=== PATIENT | female | born 1930 | race Caucasian/White ===

== ENCOUNTER 2019-03-21 07:01 | Inpatient (IN) | payer MEDICARE, BC ==
[~2019-03-21 07:01] MED LIST: Lactated Ringers 1,000 ML IV SCH; Lidocaine 1%/Sod Bicarbonate in NS 8.4% 1 ML Syringe IDERM PRN; Sodium Chloride 0.9% 10 ML Syringe FLUSH PRN
[2019-03-21] MEDS ORDERED: Sennosides 8.6 MG Tab PO PRN (07:09)
[2019-03-21] MEDS ORDERED: Iodine/Sodium Iodide 2% Tincture 30 ML Bottle ONE (07:09)
[2019-03-21] MEDS ORDERED: Bisacodyl 5 MG Tab PO PRN (07:09)
[2019-03-21] MEDS ORDERED: Ondansetron 4 MG/2 ML SDV IVPUSH PRN ×2 (07:09→11:19)
[2019-03-21] MEDS ORDERED: ceFAZolin 1 GM Vial ONE ×2 (07:09→09:47)
[2019-03-21] MEDS ORDERED: Naloxone 0.4 MG/ML SDV IVPUSH PRN (07:09)
[2019-03-21] MEDS ORDERED: Bupivacaine 0.25% 10 ML SDV ONE (07:09)
[2019-03-21] MEDS ORDERED: Vancomycin 1 GM SDV ONE (07:09)
[2019-03-21] MEDS ORDERED: Morphine 2 MG/ML Syringe IVPUSH PRN (07:09)
--- NOTE | 2019-03-21 07:22 | PCM.CONS ---
H&P History of Present Illness - General Date of Service: 03/21/19 Admit Problem/Dx: Admission Diagnosis/Problem Admission Diagnosis/Problem Osteoarthritis of hip Source of Information: Patient, Old Records, Provider, RN, RN Notes Reviewed History Limitations: Reports: No Limitations - History of Present Illness Initial Comments - Free Text/Narative: Xochitl Albright is an 88 yo female patient of Dr. Greene who is post-operative day 0 of left BABAK. Hospital medicine was consulted for post-operative medical care of the following listed medical conditions. At this time she is resting comfortably. Pain is controlled. She denies any chest pain, shortness of breath , palpitations, nausea, or vomiting. Post-operatively she did spontaneously convert into A-fib with a rate of 90-110. 10mg IVP Cardizem was given which decreased her rate to 70-80. This is likely 2/2 anesthesia and will be closely monitored. She carries a history of: HTN, Osteopenia, Unintentional weight loss , Hypothyroidism, HLD, Lung mass, Obesity, Rectal and uterine prolapse, PACs, HLD, Severe lumbar spine neuroforaminal stenosis, chronic diarrhea, Anxiety, hemorrhoids, chronic back pain. She is a former smoker. She is a full code. Her primary care provider is Dr. Slatre/Dr. Aguirre. - Related Data Allergies/Adverse Reactions: Allergies Allergy/AdvReac Type Severity Reaction Status Date / Time No Known Allergies Allergy Verified 03/20/19 13:11 Home Medications: Home Meds Acetaminophen [Tylenol] 650 mg PO Q4H PRN 03/20/19 [History] Celecoxib 200 mg PO DAILY PRN 03/20/19 [History] Cholecalciferol (Vitamin D3) [Vitamin D3] 5,000 unit PO DAILY 03/20/19 [History] Colestipol HCl 1 gm PO BEDTIME PRN 03/20/19 [History] Levothyroxine 112 mcg PO DAILY 03/20/19 [History] Simvastatin 20 mg PO DAILY 03/20/19 [History] Past Medical History HEENT History: Reports: Impaired Vision, Other (See Below) Other HEENT History: wears glasses Cardiovascular History: Reports: High Cholesterol, Hypertension, Other (See Below) Other Cardiovascular History: premature atrial complexes Respiratory History: Reports: Other (See Below) Other Respiratory History: lung mass Gastrointestinal History: Reports: Hemorrhoids, Other (See Below) Other Gastrointestinal History: colonoscopy, weight loss, diarrhea, perianal laceration of rectal mucosa, hemorrhoid Genitourinary History: Reports: None 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: , Prolapsed Uterus Musculoskeletal History: Reports: Osteoporosis Neurological History: Reports: Other (See Below) Other Neuro History: neural forminal stenosis of lumbar spine, back pain, degenerative arthropathy of spinal facet joint Psychiatric History: Reports: None Endocrine/Metabolic History: Reports: Hypothyroidism, Obesity/BMI 30+ Hematologic History: Reports: None Immunologic History: Reports: None Oncologic (Cancer) History: Reports: None Dermatologic History: Reports: None - Past Surgical History Head Surgeries/Procedures: Reports: None Cardiovascular Surgical History: Reports: None Respiratory Surgical History: Reports: None GI Surgical History: Reports: Colonoscopy Female Surgical History: Reports: Breast Biopsy, D&C Endocrine Surgical History: Reports: None Musculoskeletal Surgical History: Reports: Other (See Below) Other Musculoskeletal Surgeries/Procedures:: left ankle fracture with surgical repair Oncologic Surgical History: Reports: None Dermatological Surgical History: Reports: None Social & Family History - Tobacco Use Smoking Status *Q: Former Smoker Used Tobacco, but Quit: Yes Month/Year Tobacco Last Used: 1981 - Caffeine Use Caffeine Use: Reports: Coffee - Recreational Drug Use Recreational Drug Use: No H&P Review of Systems - Review of Systems: Review Of Systems: See Below General: Reports: No Symptoms. Denies: Fever, Chills HEENT: Reports: No Symptoms. Denies: Contact Lenses, Sore Throat Pulmonary: Reports: No Symptoms. Denies: Shortness of Breath, Wheezing, Cough, Sputum Cardiovascular: Reports: No Symptoms. Denies: Chest Pain, Palpitations, Dyspnea on Exertion Gastrointestinal: Reports: No Symptoms. Denies: Abdominal Pain, Constipation, Diarrhea, Nausea, Vomiting Genitourinary: Reports: No Symptoms. Denies: Pain Musculoskeletal: Reports: Leg Pain (left) Skin: Reports: No Symptoms. Denies: Cyanosis Psychiatric: Reports: No Symptoms. Denies: Confusion Neurological: Reports: No Symptoms, Difficulty Walking, Gait Disturbance. Denies: Pre-Existing Deficit Hematologic/Lymphatic: Reports: No Symptoms Immunologic: Reports: No Symptoms Exam - Exam Exam: See Below - Exam Quality Assessment: Supplemental Oxygen, DVT Prophylaxis General: Alert, Oriented, Cooperative. No: Mild Distress HEENT: Conjunctiva Clear, EACs Clear, Hearing Intact, Mucosa Moist & [place], Nares Patent, Posterior Pharynx Clear, PERRLA Neck: Supple, Trachea Midline Lungs: Clear to Auscultation, Normal Respiratory Effort Cardiovascular: Irregular Rhythm (new onset a-fib), Tachycardia (upper 90's-110s ) GI/Abdominal Exam: Normal Bowel Sounds, Soft, Non-Tender, No Distention, No Abnormal Bruit (Female) Exam: Deferred Rectal (Female) Exam: Deferred Back Exam: Normal Inspection, Full Range of Motion Extremities: No Pedal Edema, Normal Capillary Refill, Leg Pain, Limited Range of Motion, Other (Bandage in place on left leg. Bandage is dry and intact. Cooling pack in place. ) Peripheral Pulses: 2+: Radial (L), Radial (R), Dorsalis Pedis (L), Dorsalis Pedis (R) Skin: Warm, Dry, Intact Neurological: Cranial Nerves Intact (Grossly ) Neuro Extensive - Mental Status: Alert, Oriented x3, Normal Mood/Affect Consult PN Assessment/Plan POD#: 0 (1) S/P total hip arthroplasty SNOMED Code(s): 238233517532, 257047434861 Code(s): Z96.649 - PRESENCE OF UNSPECIFIED ARTIFICIAL HIP JOINT Priority: High Current Visit: Yes Qualifiers: Laterality: left Qualified Code(s): Z96.642 - Presence of left artificial hip joint (2) Osteoarthritis SNOMED Code(s): 251510899 Code(s): M19.90 - UNSPECIFIED OSTEOARTHRITIS, UNSPECIFIED SITE Priority: High Current Visit: Yes Qualifiers: Osteoarthritis location: hip Osteoarthritis type: primary Laterality: left Qualified Code(s): M16.12 - Unilateral primary osteoarthritis, left hip (3) HTN (hypertension) SNOMED Code(s): 28342110 Code(s): I10 - ESSENTIAL (PRIMARY) HYPERTENSION Priority: Low Current Visit: No Qualifiers: Hypertension type: unspecified Qualified Code(s): I10 - Essential (primary ) hypertension (4) Osteopenia SNOMED Code(s): 182033237 Code(s): M85.80 - OTH DISRD OF BONE DENSITY AND STRUCTURE, UNSPECIFIED SITE Priority: High Current Visit: Yes Qualifiers: Osteopenia location: unspecified Qualified Code(s): M85.80 - Other specified disorders of bone density and structure, unspecified site (5) Unintentional weight loss SNOMED Code(s): 335500802 Code(s): R63.4 - ABNORMAL WEIGHT LOSS Priority: Low Current Visit: No (6) Hypothyroidism SNOMED Code(s): 32805409 Code(s): E03.9 - HYPOTHYROIDISM, UNSPECIFIED Priority: Low Current Visit : No Qualifiers: Hypothyroidism type: unspecified Qualified Code(s): E03.9 - Hypothyroidism , unspecified (7) HLD (hyperlipidemia) SNOMED Code(s): 45786190 Code(s): E78.5 - HYPERLIPIDEMIA, UNSPECIFIED Priority: Low Current Visit : No (8) Lung mass SNOMED Code(s): 641058655 Code(s): R91.8 - OTHER NONSPECIFIC ABNORMAL FINDING OF LUNG FIELD Priority : Low Current Visit: No (9) Obesity SNOMED Code(s): 038583209, 885008844 Code(s): E66.9 - OBESITY, UNSPECIFIED Priority: Medium Current Visit: No Qualifiers: Obesity type: unspecified obesity type Obesity classification: adult class 1 (BMI 30 - 34.9) Body mass index: BMI 30.0-30.9 (10) Rectal prolapse SNOMED Code(s): 57558968 Code(s): K62.3 - RECTAL PROLAPSE Priority: Low Current Visit: No (11) Uterine prolapse SNOMED Code(s): 54820631 Code(s): N81.4 - UTEROVAGINAL PROLAPSE, UNSPECIFIED Priority: Low Current Visit: No (12) Neuroforaminal stenosis of lumbar spine SNOMED Code(s): 668758828369, 123070897203 Code(s): M99.83 - OTHER BIOMECHANICAL LESIONS OF LUMBAR REGION Priority: Medium Current Visit: No (13) Chronic diarrhea SNOMED Code(s): 749362025 Code(s): K52.9 - NONINFECTIVE GASTROENTERITIS AND COLITIS, UNSPECIFIED Priority: Low Current Visit: No (14) Postoperative atrial fibrillation SNOMED Code(s): 01312705 Code(s): I97.89 - OTH POSTPROC COMP AND DISORDERS OF THE CIRC SYS, NEC; I48.91 - UNSPECIFIED ATRIAL FIBRILLATION Priority: High Current Visit: Yes Problem List Initiated/Reviewed/Updated: Yes Plan: I/P: Acute: S/P left total hip arthroplasty - post-operative day 0 -DVT prophylaxis and pain management per primary care team -PT/OT -IS/RT -Monitor oxygen saturation -Titrate oxygen as needed -Home medications reviewed -Vital signs stable -Monitor labs -Pre-operative Hgb was 13.3 -Pre-operative GFR was 64 -Pre-operative 12-lead EKG shows Sinus Bradycardia with non-specific T-wave abnormality, consider anteroseptal ischmia -Intermediate CV risk deemed by PCP Osteoarthritis of left hip -Pain management per primary care team Post-operative Atrial fibrillation -Acute onset post-operatively -Confirmed with 12-lead EKG - HR upper 90's-110's -10mg cardizem given with HR responding to 70-80's -Telemetry -Continue to monitor -Discussed anticoagulation choice for tomorrow with PCP Chronic: HTNOsteopenia Unintentional weight loss Hypothyroidism HLD Lung mass Obesity Rectal and uterine prolapse PACs Severe lumbar spine neuroforaminal stenosis Chronic diarrhea Anxiety Hemorrhoids Chronic back pain Plan: CM for discharge planning GI prophylaxis Home medications as indicated Other orders as listed above Routine AM labs She is a full code. Her PCP is Dr. Slater/Dr. Aguirre Thank you for allowing us to participate in the care of this patient!! Requesting Provider: Dr. Greene Patient History Reviewed: Yes Admission H&P Reviewed: Yes
--- NOTE | 2019-03-21 07:52 | PCM.PREANE ---
Preanesthetic Assessment - Procedure Proposed Procedure: Left total hip arthroplasty - Anesthesia/Transfusion/Family Hx Anesthesia History: Prior Anesthesia Without Reaction Family History of Anesthesia Reaction: No Transfusion History: No Prior Transfusion(s) - Review of Systems General: No Symptoms Pulmonary: No Symptoms Cardiovascular: No Symptoms Gastrointestinal: No Symptoms Neurological: No Symptoms Other: Reports: Easy Bruising, Thyroid Problems (hypothyroid), Anxiety - Physical Assessment NPO Status Date: 03/20/19 NPO Status Time: 17:00 Vital Signs: Last Vital Signs Temp 36.6 C 03/21/19 07:20 Pulse 64 03/21/19 07:20 Resp 16 03/21/19 07:20 BP 189/84 H 03/21/19 07:20 Pulse Ox 96 03/21/19 07:20 Height: 1.57 m Weight: 74.389 kg ASA Class: 2 Mental Status: Alert & Oriented x3 Airway Class: Mallampati = 2 Dentition: Reports: Dentures (top), Caries Thyro-Mental Finger Breadths: 3 Mouth Opening Finger Breadths: 3 ROM/Head Extension: Full Lungs: Clear to Auscultation, Normal Respiratory Effort Cardiovascular: Regular Rate, Regular Rhythm - Lab Values: Laboratory Last Values MRSA (PCR) Negative 03/12/19 15:33 - Imaging/EKG Impressions: EKG SB rate 55 - Allergies Allergies/Adverse Reactions: Allergies Allergy/AdvReac Type Severity Reaction Status Date / Time No Known Allergies Allergy Verified 03/20/19 13:11 - Anesthesia Plan Pre-Op Medication Ordered: None - Acknowledgements Anesthesia Type Planned: Spinal Pt an Appropriate Candidate for the Planned Anesthesia: Yes Alternatives and Risks of Anesthesia Discussed w Pt/Guardian: Yes Pt/Guardian Understands and Agrees with Anesthesia Plan: Yes PreAnesthesia Questionnaire HEENT History: Reports: Impaired Vision, Other (See Below) Other HEENT History: wears glasses Cardiovascular History: Reports: High Cholesterol, Hypertension, Other (See Below) Other Cardiovascular History: premature atrial complexes Respiratory History: Reports: Other (See Below) Other Respiratory History: lung mass Gastrointestinal History: Reports: Hemorrhoids, Other (See Below) Other Gastrointestinal History: colonoscopy, weight loss, diarrhea, perianal laceration of rectal mucosa, hemorrhoid Genitourinary History: Reports: None 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: , Prolapsed Uterus Musculoskeletal History: Reports: Osteoporosis Neurological History: Reports: Other (See Below) Other Neuro History: neural forminal stenosis of lumbar spine, back pain, degenerative arthropathy of spinal facet joint Psychiatric History: Reports: None Endocrine/Metabolic History: Reports: Hypothyroidism, Obesity/BMI 30+ Hematologic History: Reports: None Immunologic History: Reports: None Oncologic (Cancer) History: Reports: None Dermatologic History: Reports: None - Past Surgical History Head Surgeries/Procedures: Reports: None Cardiovascular Surgical History: Reports: None Respiratory Surgical History: Reports: None GI Surgical History: Reports: Colonoscopy Female Surgical History: Reports: Breast Biopsy, D&C Endocrine Surgical History: Reports: None Musculoskeletal Surgical History: Reports: Other (See Below) Other Musculoskeletal Surgeries/Procedures:: left ankle fracture with surgical repair Oncologic Surgical History: Reports: None Dermatological Surgical History: Reports: None - SUBSTANCE USE Smoking Status *Q: Former Smoker Tobacco Use Within Last Twelve Months: No Second Hand Smoke Exposure: No Days Per Week of Alcohol Use: 0 Number of Drinks Per Day: 0 Total Drinks Per Week: 0 Recreational Drug Use History: No - HOME MEDS Home Medications: Home Meds Acetaminophen [Tylenol] 650 mg PO Q4H PRN 03/20/19 [History] Celecoxib 200 mg PO DAILY PRN 03/20/19 [History] Cholecalciferol (Vitamin D3) [Vitamin D3] 5,000 unit PO DAILY 03/20/19 [History] Colestipol HCl 1 gm PO BEDTIME PRN 03/20/19 [History] Levothyroxine 112 mcg PO DAILY 03/20/19 [History] Simvastatin 20 mg PO DAILY 03/20/19 [History] - CURRENT (IN HOUSE) MEDS Current Meds: Current Medications Hydrocodone Bitart/Acetaminophen ([place] 325-5 Mg) 1 - 2 tab PO Q4H PRN PRN Reason: Pain Aspirin (Ecotrin) 325 mg PO BID MARIO ALBERTO Bisacodyl (Dulcolax) 5 mg PO DAILY PRN PRN Reason: Constipation Docusate Sodium (Colace) 100 mg PO BID MARIO ALBERTO Famotidine (Pepcid) 20 mg PO Q12H MARIO ALBERTO Lactated Ringer's (Ringers, Lactated) 1,000 mls @ 125 mls/hr IV ASDIRECTED MARIO ALBERTO Stop: 03/21/19 23:00 Cefazolin Sodium/Dextrose 2 gm (/ Premix) 50 mls @ 100 mls/hr IV Q8H MARIO ALBERTO Stop: 03/21/19 23:44 Lidocaine/Sodium Bicarbonate (Buffered Lidocaine 1% In Ns 8.4%) 0.25 ml IDERM ONETIME PRN PRN Reason: Prior to IV Start Stop: 03/21/19 18:00 Morphine Sulfate (Morphine) 2 mg IVPUSH Q2H PRN PRN Reason: Breakthrough Pain Naloxone HCl (Narcan) 0.1 mg IVPUSH Q5M PRN PRN Reason: Oversedation Ondansetron HCl (Zofran) 4 mg IVPUSH Q6H PRN PRN Reason: Nausea/Vomiting Senna (Senna) 8.6 mg PO BID PRN PRN Reason: Constipation Sodium Chloride (Saline Flush) 10 ml FLUSH ASDIRECTED PRN PRN Reason: Keep Vein Open Stop: 03/21/19 18:00 Discontinued Medications Bupivacaine HCl (Sensorcaine-Mpf 0.25%) Confirm Administered Dose 30 ml .ROUTE .STK-MED ONE Stop: 03/21/19 07:10 Cefazolin Sodium (Ancef) Confirm Administered Dose 2 gm .ROUTE .STK-MED ONE Stop: 03/21/19 07:10 Morphine Sulfate 8 mg/Epinephrine HCl 0.3 mg/Cefuroxime Sodium 750 mg/Ketorolac Tromethamine 30 mg/Sodium Chloride 27.9 ml 0 mg .XX ONETIME ONE Stop: 03/21/19 07:36 Iodine (Iodine 2% Mild Tincture) Confirm Administered Dose 30 ml .ROUTE .STK- MED ONE Stop: 03/21/19 07:10 Tranexamic Acid (Cyklokapron) Confirm Administered Dose 1,000 mg .ROUTE .STK- MED ONE Stop: 03/21/19 07:10 Vancomycin HCl (Vancomycin) Confirm Administered Dose 1 gm .ROUTE .STK-MED ONE Stop: 03/21/19 07:10
[2019-03-21] MEDS ORDERED: Lidocaine 1% 4 ML ONE (08:32)
[2019-03-21] MEDS ORDERED: Propofol 200 MG/20 ML SDV ONE (08:32)
[2019-03-21] MEDS ORDERED: Ketamine 500 mg/10 ML MDV ONE (09:33)
[2019-03-21] MEDS ORDERED: fentaNYL 100 MCG/2 ML SDV ONE ×3 (09:33→11:19)
[2019-03-21] MEDS ORDERED: ePHEDrine/Normal Saline 25 MG/5 ML Syringe ONE (09:52)
[2019-03-21] MEDS ORDERED: Esmolol 100 MG/10 ML SDV ONE (10:01)
[2019-03-21] MEDS: Morphine 8 MG, EPINEPHrine 0.3 MG, Cefuroxime 750 MG, Ketorolac 30 MG, Sodium Chloride ... ONE ×10 (10:35→15:33)
[2019-03-21] MEDS ORDERED: COLESTIPOL HCL 1 GM PO PRN (11:11)
[2019-03-21] MEDS ORDERED: HYDROmorphone 0.5 MG/0.5 ML Syringe IVPUSH PRN (11:19)
[2019-03-21] MEDS: fentaNYL 100 MCG/2 ML SDV IVPUSH PRN ×2 (11:21→11:32)
--- NOTE | 2019-03-21 11:26 | PCM.POSTAN ---
POST ANESTHESIA ASSESSMENT - MENTAL STATUS Mental Status: Alert, Oriented - VITAL SIGNS Vital Signs: Last Vital Signs Temp 36.6 C 03/21/19 07:20 Pulse 64 03/21/19 07:20 Resp 16 03/21/19 07:20 BP 165/77 H 03/21/19 08:04 Pulse Ox 96 03/21/19 07:20 - RESPIRATORY Respiratory Status: Respiratory Rate WNL, Airway Patent, O2 Saturation Stable ( NC O2) - CARDIOVASCULAR CV Status: Blood Pressure Stable Free Text/Narrative:: Right at the end of the case, even as they had finished closing, the patient's HR increased and became irregular. It appeared that the p-waves were no longer present. We took her to PACU and obtained a 12-lead EKG which looks like a new onset of a-fib. We are sending this patient to ICU to evaluate and treat these changes. - GASTROINTESTINAL GI Status: No Symptoms - POST OP HYDRATION Hydration Status: Adequate & Stable - OBSERVATIONS Free Text/Narrative:: Patient is oriented to person, time, place, and situation. Her respiratory status is good. She says she "feels uncomfortable," so we are treating her pain with IV fentanyl. It also appears that she went into a new onset of atrial fibrillation. We obtained a 12-lead EKG and are awaiting a read, but we are also admitting her to ICU.
[2019-03-21] MEDS ORDERED: Diltiazem 50 MG/10 ML SDV IVPUSH ONE (12:15)
--- NOTE | 2019-03-21 12:44 | CR ---
Pelvis and left hip: AP view of the pelvis was obtained as well as lateral view of left hip. Comparison: No prior pelvis or left hip exam. Left hip prosthesis is seen. Components are aligned. Degenerative change is noted within the lower lumbar spine. Joint space narrowing is seen within the right hip. Bony structures are osteopenic. Soft tissue air is noted around the left hip compatible with recent surgery. Impression: 1. Recently placed left hip prosthesis. 2. Other findings as noted above. Diagnostic code #2 This report was dictated in [place] Standard Time
[2019-03-21] MEDS: Famotidine 20 MG Tab PO SCH ×2 (15:33→18:28)
[2019-03-21] MEDS ORDERED: Scopolamine 1.5 MG Transdermal Patch TRDERM PRN (16:00)
[2019-03-21] MEDS: ceFAZolin 2 GM in Premix Bag 1 BAG IV SCH ×2 (16:13→22:29)
[2019-03-21] MEDS ORDERED: Metoclopramide 10 MG/2 ML SDV IVPUSH SCH (18:00)
[2019-03-21] MEDS ORDERED: Metoclopramide 10 MG/2 ML SDV IVPUSH PRN (18:15)
[2019-03-21] MEDS: Acetaminophen/HYDROcodone 325-5 MG Tab PO PRN ×2 (18:26→22:29)
[2019-03-21] MEDS: Docusate Sodium 100 MG Cap PO SCH (22:29)
[2019-03-22] MEDS ORDERED: Levothyroxine 112 MCG Tab PO SCH (06:00)
[2019-03-22] MEDS: Famotidine 20 MG Tab PO SCH (06:28)
[2019-03-22] MEDS: ceFAZolin 2 GM in Premix Bag 1 BAG IV SCH (06:29)
[2019-03-22] MEDS: Acetaminophen/HYDROcodone 325-5 MG Tab PO PRN ×2 (06:29→14:21)
--- NOTE | 2019-03-22 07:03 | PCM.CONSN ---
- General Info Date of Service: 03/22/19 Admission Dx/Problem (Free Text): Admission Diagnosis/Problem Admission Diagnosis/Problem Osteoarthritis of hip Functional Status: Reports: Pain Controlled, Tolerating Diet, Ambulating, Urinating, New Symptoms - Review of Systems General: Reports: No Symptoms. Denies: Fever, Weakness, Fatigue, Malaise HEENT: Reports: No Symptoms. Denies: Headaches, Sore Throat Pulmonary: Reports: No Symptoms. Denies: Shortness of Breath, Cough, Sputum, Wheezing Cardiovascular: Reports: No Symptoms. Denies: Chest Pain, Palpitations, Dyspnea on Exertion, Edema Gastrointestinal: Reports: No Symptoms. Denies: Abdominal Pain, Constipation, Diarrhea, Nausea, Vomiting Genitourinary: Reports: No Symptoms. Denies: Pain Musculoskeletal: Reports: Leg Pain (left) Skin: Reports: No Symptoms. Denies: Cyanosis Neurological: Reports: Difficulty Walking, Gait Disturbance. Denies: Confusion , Pre-Existing Deficit Psychiatric: Reports: No Symptoms - Patient Data Vitals - Most Recent: Last Vital Signs Temp 98.1 F 03/22/19 03:41 Pulse 60 03/22/19 03:41 Resp 18 03/22/19 03:41 BP 134/51 L 03/22/19 03:41 Pulse Ox 96 03/22/19 03:41 Weight - Most Recent: 147 lb 4.8 oz I&O - Last 24 Hours: Intake & Output 03/21/19 03/22/19 03/22/19 22:59 06:59 14:59 Intake Total 180 300 Output Total 500 Balance 180 -200 Lab Results Last 24 Hours: Laboratory Results - last 24 hr 03/21/19 03/22/19 03/22/19 Range/Units 07:45 05:15 05:15 WBC 5.98 (3.98-10.04) K/mm3 RBC 4.17 (3.98-5.22) M/mm3 Hgb 11.1 L (11.2-15.7) gm/dl Hct 37.2 (34.1-44.9) % MCV 89.2 (79.4-94.8) fl MCH 26.6 (25.6-32.2) pg MCHC 29.8 L (32.2-35.5) g/dl RDW Std Deviation 57.5 H (36.4-46.3) fL Plt Count 192 (182-369) K/mm3 MPV 10.3 (9.4-12.3) fl Sodium 141 (136-145) mEq/L Potassium 3.9 (3.5-5.1) mEq/L Chloride 104 (98-107) mEq/L Carbon Dioxide 30 (21-32) mEq/L Anion Gap 10.9 (5-15) BUN 12 (7-18) mg/dL Creatinine 0.9 (0.55-1.02) mg/dL Est Cr Clr Drug Dosing 34.83 mL/min Estimated GFR (MDRD) 59 (>60) mL/min BUN/Creatinine Ratio 13.3 L (14-18) Glucose 101 (83-115) mg/dL Calcium 9.3 (8.5-10.1) mg/dL Total Bilirubin 0.6 (0.2-1.0) mg/dL AST 19 (15-37) U/L ALT 15 (14-59) U/L Alkaline Phosphatase 51 (46-116) U/L Total Protein 6.2 L (6.4-8.2) g/dl Albumin 3.3 L (3.4-5.0) g/dl Globulin 2.9 gm/dL Albumin/Globulin Ratio 1.1 (1-2) Blood Type A POSITIVE Gel Antibody Screen Negative Med Orders - Current: Current Medications Hydrocodone Bitart/Acetaminophen ([place] 325-5 Mg) 1 - 2 tab PO Q4H PRN PRN Reason: Pain Last Admin: 03/22/19 06:29 Dose: 2 tab Bisacodyl (Dulcolax) 5 mg PO DAILY PRN PRN Reason: Constipation Cholecalciferol (Vitamin D3) 5,000 unit PO DAILY [facility] Docusate Sodium (Colace) 100 mg PO BID [facility] Last Admin: 03/21/19 22:29 Dose: 100 mg Famotidine (Pepcid) 20 mg PO Q12H [facility] Last Admin: 03/22/19 06:28 Dose: 20 mg Cefazolin Sodium/Dextrose 2 gm (/ Premix) 50 mls @ 100 mls/hr IV Q8H [facility] Stop: 03/22/19 07:29 Last Admin: 03/22/19 06:29 Dose: 100 mls/hr Levothyroxine Sodium (Levothyroxine) 112 mcg PO ACBREAKFAST [facility] Last Admin: 03/22/19 06:29 Dose: 112 mcg Metoclopramide HCl (Reglan) 5 mg IVPUSH Q6H PRN PRN Reason: NAUSEA Last Admin: 03/21/19 18:26 Dose: 5 mg Miscellaneous Information (Remove Patch) 0 ea TRDERM Q72H PRN PRN Reason: SEE LABEL COMMENTS Morphine Sulfate (Morphine) 2 mg IVPUSH Q2H PRN PRN Reason: Breakthrough Pain Naloxone HCl (Narcan) 0.1 mg IVPUSH Q5M PRN PRN Reason: Oversedation Ondansetron HCl (Zofran) 4 mg IVPUSH Q6H PRN PRN Reason: Nausea/Vomiting Last Admin: 03/21/19 13:18 Dose: 4 mg Colestipol Hcl 1 Gm 0 each PO BEDTIME PRN PRN Reason: as directed Scopolamine (Transderm-Scop) 1.5 mg TRDERM Q72H PRN PRN Reason: Nausea Last Admin: 03/21/19 16:12 Dose: 1.5 mg Senna (Senna) 8.6 mg PO BID PRN PRN Reason: Constipation Simvastatin (Zocor) 20 mg PO DAILY [facility] Discontinued Medications Aspirin (Ecotrin) 325 mg PO BID [facility] Bupivacaine HCl (Sensorcaine-Mpf 0.25%) Confirm Administered Dose 30 ml .ROUTE .STK-MED ONE Stop: 03/21/19 07:10 Last Admin: 03/21/19 10:36 Dose: 30 ml Cefazolin Sodium (Ancef) Confirm Administered Dose 2 gm .ROUTE .STK-MED ONE Stop: 03/21/19 07:10 Last Admin: 03/21/19 10:30 Dose: 2 gm Cefazolin Sodium (Ancef) Confirm Administered Dose 2 gm .ROUTE .STK-MED ONE Stop: 03/21/19 09:48 Morphine Sulfate 8 mg/Epinephrine HCl 0.3 mg/Cefuroxime Sodium 750 mg/Ketorolac Tromethamine 30 mg/Sodium Chloride 27.9 ml 0 mg .XX ONETIME ONE Stop: 03/21/19 07:36 Last Admin: 03/21/19 15:33 Dose: Not Given Diltiazem HCl (Cardizem) 10 mg IVPUSH ONETIME ONE Stop: 03/21/19 12:16 Last Admin: 03/21/19 12:16 Dose: 10 mg Ephedrine Sulfate (Ephedrine In Ns) Confirm Administered Dose 25 mg .ROUTE .STK- MED ONE Stop: 03/21/19 09:53 Esmolol HCl (Esmolol) Confirm Administered Dose 100 mg .ROUTE .STK-MED ONE Stop: 03/21/19 10:02 Fentanyl (Sublimaze) Confirm Administered Dose 100 mcg .ROUTE .STK-MED ONE Stop: 03/21/19 09:34 Fentanyl (Sublimaze) Confirm Administered Dose 100 mcg .ROUTE .STK-MED ONE Stop: 03/21/19 10:10 Fentanyl (Sublimaze) 50 mcg IVPUSH Q5M PRN PRN Reason: Pain Stop: 03/21/19 13:30 Last Admin: 03/21/19 11:32 Dose: 50 mcg Fentanyl (Sublimaze) Confirm Administered Dose 100 mcg .ROUTE .STK-MED ONE Stop: 03/21/19 11:20 Last Admin: 03/21/19 20:00 Dose: Not Given Glycopyrrolate () Confirm Administered Dose 1 mg .ROUTE .STK-MED ONE Stop: 03/21/19 09:56 Hydromorphone HCl (Dilaudid) 0.5 mg IVPUSH Q10M PRN PRN Reason: Pain (severe 7-10) Stop: 03/21/19 13:30 Lactated Ringer's (Ringers, Lactated) 1,000 mls @ 125 mls/hr IV ASDIRECTED [facility] Stop: 03/21/19 23:00 Last Admin: 03/21/19 07:54 Dose: 125 mls/hr Lidocaine HCl (Xylocaine-Mpf 1%) Confirm Administered Dose 4 mls @ as directed .ROUTE .STK-MED ONE Stop: 03/21/19 08:33 Iodine (Iodine 2% Mild Tincture) Confirm Administered Dose 30 ml .ROUTE .STK- MED ONE Stop: 03/21/19 07:10 Last Admin: 03/21/19 10:28 Dose: 18 ml Ketamine HCl (Ketalar) Confirm Administered Dose 500 mg .ROUTE .STK-MED ONE Stop: 03/21/19 09:34 Lidocaine HCl (Xylocaine-Mpf 1%) Confirm Administered Dose 5 ml .ROUTE .STK-MED ONE Stop: 03/21/19 09:22 Lidocaine/Sodium Bicarbonate (Buffered Lidocaine 1% In Ns 8.4%) 0.25 ml IDERM ONETIME PRN PRN Reason: Prior to IV Start Stop: 03/21/19 18:00 Last Admin: 03/21/19 07:54 Dose: 0.25 ml Metoclopramide HCl (Reglan) 5 mg IVPUSH Q6H [facility] Last Admin: 03/21/19 20:00 Dose: Not Given Ondansetron HCl (Zofran) 4 mg IVPUSH ONETIME PRN PRN Reason: Nausea/Vomiting Stop: 03/21/19 13:30 Propofol (Diprivan 20 Ml) Confirm Administered Dose 400 mg .ROUTE .STK-MED ONE Stop: 03/21/19 08:33 Sodium Chloride (Saline Flush) 10 ml FLUSH ASDIRECTED PRN PRN Reason: Keep Vein Open Stop: 03/21/19 18:00 Tranexamic Acid (Cyklokapron) Confirm Administered Dose 1,000 mg .ROUTE .STK- MED ONE Stop: 03/21/19 07:10 Last Admin: 03/21/19 10:37 Dose: 1,000 mg Vancomycin HCl (Vancomycin) Confirm Administered Dose 1 gm .ROUTE .STK-MED ONE Stop: 03/21/19 07:10 Last Admin: 03/21/19 10:36 Dose: 1 gm - Exam Quality Assessment: DVT Prophylaxis. No: Supplemental Oxygen General: Alert, Oriented, Cooperative, No Acute Distress HEENT: Pupils Equal, Pupils Reactive, Mucous Membr. Moist/[place] Neck: Supple, Trachea Midline Lungs: Clear to Auscultation, Normal Respiratory Effort Cardiovascular: Regular Rate, Regular Rhythm, Other (Has been going in and out of A-fib ) GI/Abdominal Exam: Normal Bowel Sounds, Soft, Non-Tender, No Distention, No Abnormal Bruit (Female) Exam: Deferred Back Exam: Normal Inspection, Full Range of Motion Extremities: No Pedal Edema, Normal Capillary Refill, Leg Pain, Limited Range of Motion, Other (Bandage in place on left leg. Cooling pack in place. ) Peripheral Pulses: 2+: Radial (L), Radial (R), Dorsalis Pedis (L), Dorsalis Pedis (R) Skin: Warm, Dry, Intact Wound/Incisions: Dressing Dry and Intact Neurological: No New Focal Deficit Psy/Mental Status: Alert, Normal Affect, Normal Mood Consult PN Assessment/Plan POD#: 1 (1) S/P total hip arthroplasty SNOMED Code(s): 979257054434, 479394061353 Code(s): Z96.649 - PRESENCE OF UNSPECIFIED ARTIFICIAL HIP JOINT Priority: High Current Visit: Yes Qualifiers: Laterality: left Qualified Code(s): Z96.642 - Presence of left artificial hip joint (2) Osteoarthritis SNOMED Code(s): 638771689 Code(s): M19.90 - UNSPECIFIED OSTEOARTHRITIS, UNSPECIFIED SITE Priority: High Current Visit: Yes Qualifiers: Osteoarthritis location: hip Osteoarthritis type: primary Laterality: left Qualified Code(s): M16.12 - Unilateral primary osteoarthritis, left hip (3) HTN (hypertension) SNOMED Code(s): 55305016 Code(s): I10 - ESSENTIAL (PRIMARY) HYPERTENSION Priority: Low Current Visit: No Qualifiers: Hypertension type: unspecified Qualified Code(s): I10 - Essential (primary ) hypertension (4) Osteopenia SNOMED Code(s): 991563413 Code(s): M85.80 - OTH DISRD OF BONE DENSITY AND STRUCTURE, UNSPECIFIED SITE Priority: High Current Visit: Yes Qualifiers: Osteopenia location: unspecified Qualified Code(s): M85.80 - Other specified disorders of bone density and structure, unspecified site (5) Unintentional weight loss SNOMED Code(s): 099700659 Code(s): R63.4 - ABNORMAL WEIGHT LOSS Priority: Low Current Visit: No (6) Hypothyroidism SNOMED Code(s): 83122799 Code(s): E03.9 - HYPOTHYROIDISM, UNSPECIFIED Priority: Low Current Visit : No Qualifiers: Hypothyroidism type: unspecified Qualified Code(s): E03.9 - Hypothyroidism , unspecified (7) HLD (hyperlipidemia) SNOMED Code(s): 21276806 Code(s): E78.5 - HYPERLIPIDEMIA, UNSPECIFIED Priority: Low Current Visit : No (8) Lung mass SNOMED Code(s): 569844994 Code(s): R91.8 - OTHER NONSPECIFIC ABNORMAL FINDING OF LUNG FIELD Priority : Low Current Visit: No (9) Obesity SNOMED Code(s): 451881045, 976711969 Code(s): E66.9 - OBESITY, UNSPECIFIED Priority: Medium Current Visit: No Qualifiers: Obesity type: unspecified obesity type Obesity classification: adult class 1 (BMI 30 - 34.9) Body mass index: BMI 30.0-30.9 (10) Rectal prolapse SNOMED Code(s): 19208346 Code(s): K62.3 - RECTAL PROLAPSE Priority: Low Current Visit: No (11) Uterine prolapse SNOMED Code(s): 12732887 Code(s): N81.4 - UTEROVAGINAL PROLAPSE, UNSPECIFIED Priority: Low Current Visit: No (12) Neuroforaminal stenosis of lumbar spine SNOMED Code(s): 275409919255, 196862157081 Code(s): M99.83 - OTHER BIOMECHANICAL LESIONS OF LUMBAR REGION Priority: Medium Current Visit: No (13) Chronic diarrhea SNOMED Code(s): 897473681 Code(s): K52.9 - NONINFECTIVE GASTROENTERITIS AND COLITIS, UNSPECIFIED Priority: Low Current Visit: No (14) Postoperative atrial fibrillation SNOMED Code(s): 23675311 Code(s): I97.89 - OTH POSTPROC COMP AND DISORDERS OF THE CIRC SYS, NEC; I48.91 - UNSPECIFIED ATRIAL FIBRILLATION Priority: High Current Visit: Yes Problem List Initiated/Reviewed/Updated: Yes My Orders Last 24 Hours: My Active Orders 03/21/19 16:00 Scopolamine [Transderm-Scop] 1.5 mg TRDERM Q72H PRN 03/24/19 16:00 Remove Patch 0 ea TRDERM Q72H PRN Plan: I/P: Acute: S/P left total hip arthroplasty - post-operative day 1 -DVT prophylaxis and pain management per primary care team -PT/OT -IS/RT -Monitor oxygen saturation -Titrate oxygen as needed -Home medications reviewed -Vital signs stable -Monitor labs -Pre-operative Hgb was 13.3, Now 11.1 -Pre-operative GFR was 64; Now 59 -Pre-operative 12-lead EKG shows Sinus Bradycardia with non-specific T-wave abnormality, consider anteroseptal ischemia -Intermediate CV risk deemed by PCP Osteoarthritis of left hip -Pain management per primary care team Post-operative Atrial fibrillation -Acute onset post-operatively -Confirmed with 12-lead EKG - HR upper 90's-110's -10mg cardizem given with HR responding to 70-80's -Telemetry -Continue to monitor -Discussed anticoagulation choice with PCP Chronic: HTN Osteopenia Unintentional weight loss Hypothyroidism HLD Lung mass Obesity Rectal and uterine prolapse PACs Severe lumbar spine neuroforaminal stenosis Chronic diarrhea Anxiety Hemorrhoids Chronic back pain Plan: CM for discharge planning GI prophylaxis Home medications as indicated Other orders as listed above Routine AM labs She is a full code. Her PCP is Dr. Slater/Dr. Aguirre From a hospitalist standpoint Xochitl is doing well. She has been up ambulating and working with therapies. She is off of oxygen and has urinated. Pain is controlled. Her labs and vital signs remain stable. She has been utilizing her IS. Postoperatively she was noted to be in A-fib with a rate of upper 90's to 110's. 10mg IVP cardizem was given and her rate did decrease to 70-80's. She then converted to a sinus rhythm with PACs. Pre-operative 12-lead was reviewed with no changes noted. She has occasionally jumped back and forth between A-fib and sinus rhythm with PACs. While in A-fib she remains rate controlled. Discussed anticoagulation with primary team and recommended A-fib stroke prophylaxis dosing for anticoagulation and not post-BABAK dosing. This should be monitored by her PCP. Recommending follow-up with PCP within 5-7 days of discharge. She is otherwise cleared for discharge pending primary team and PT/ OT agreement. Thank you for allowing us to participate in the care of this patient!!
[2019-03-22] MEDS: Docusate Sodium 100 MG Cap PO SCH (08:53)
--- NOTE | 2019-03-22 08:57 | PCM48HPAN ---
Post Anesthesia Note - EVALUATION WITHIN 48HRS OF ANESTHETIC Vital Signs in Normal Range: No (Patient remains on telemetry. She goes "in and out" of a-fib per RN) Patient Participated in Evaluation: Yes Respiratory Function Stable: Yes Airway Patent: Yes Cardiovascular Function Stable: No (Rate controlled a-fib) Hydration Status Stable: Yes Pain Control Satisfactory: Yes Nausea and Vomiting Control Satisfactory: Yes Mental Status Recovered: Yes Vital Signs: Last Vital Signs Temp 36.7 C 03/22/19 03:41 Pulse 60 03/22/19 03:41 Resp 18 03/22/19 03:41 BP 134/51 L 03/22/19 03:41 Pulse Ox 96 03/22/19 03:41 - COMMENTS/OBSERVATIONS Free Text/Narrative:: Patient doing well. Was finishing PT treatment upon my arrival. Good spirits. Very alert. Remembered my name from yesterday. Only concern that needs ongoing follow-up is her cardiac rhythm and anticoagulation status as a result. According to [employer]OR, the patient remains on telemetry and is "going in and out of a-fib, from a rate in the 50s to low 100s."
[2019-03-22] MEDS ORDERED: Simvastatin 20 MG Tab PO SCH (09:00)
[2019-03-22] MEDS ORDERED: Cholecalciferol (Vitamin D3) 5,000 UNIT Tab PO SCH (09:00)
[2019-03-22] MEDS ORDERED: Aspirin 325 MG Tab.EC PO SCH (09:00)
[2019-03-22] MEDS ORDERED: Apixaban 5 MG Tab PO SCH (11:15)
--- NOTE | 2019-03-22 14:24 | PCM.SURGPN ---
- General Info Date of Service: 03/22/19 POD#: 1 Functional Status: Reports: Pain Controlled, Tolerating Diet, Ambulating, Urinating, Incentive Spirometry, Other (The pt reports her pain is well controlled with current regimen.) - Patient Data Vitals - Most Recent: Last Vital Signs Temp 97.9 F 03/22/19 07:34 Pulse 65 03/22/19 07:34 Resp 20 03/22/19 07:34 BP 133/68 03/22/19 07:34 Pulse Ox 93 L 03/22/19 07:34 Weight - Most Recent: 147 lb 4.8 oz I&O - Last 24 Hours: Intake & Output 03/21/19 03/22/19 03/22/19 22:59 06:59 14:59 Intake Total 180 300 90 Output Total 500 Balance 180 -200 90 Lab Results Last 24 Hrs: Laboratory Results - last 24 hr 03/22/19 03/22/19 Range/Units 05:15 05:15 WBC 5.98 (3.98-10.04) K/mm3 RBC 4.17 (3.98-5.22) M/mm3 Hgb 11.1 L (11.2-15.7) gm/dl Hct 37.2 (34.1-44.9) % MCV 89.2 (79.4-94.8) fl MCH 26.6 (25.6-32.2) pg MCHC 29.8 L (32.2-35.5) g/dl RDW Std Deviation 57.5 H (36.4-46.3) fL Plt Count 192 (182-369) K/mm3 MPV 10.3 (9.4-12.3) fl Sodium 141 (136-145) mEq/L Potassium 3.9 (3.5-5.1) mEq/L Chloride 104 (98-107) mEq/L Carbon Dioxide 30 (21-32) mEq/L Anion Gap 10.9 (5-15) BUN 12 (7-18) mg/dL Creatinine 0.9 (0.55-1.02) mg/dL Est Cr Clr Drug Dosing 34.83 mL/min Estimated GFR (MDRD) 59 (>60) mL/min BUN/Creatinine Ratio 13.3 L (14-18) Glucose 101 (83-115) mg/dL Calcium 9.3 (8.5-10.1) mg/dL Total Bilirubin 0.6 (0.2-1.0) mg/dL AST 19 (15-37) U/L ALT 15 (14-59) U/L Alkaline Phosphatase 51 (46-116) U/L Total Protein 6.2 L (6.4-8.2) g/dl Albumin 3.3 L (3.4-5.0) g/dl Globulin 2.9 gm/dL Albumin/Globulin Ratio 1.1 (1-2) Med Orders - Current: Current Medications Hydrocodone Bitart/Acetaminophen ([place] 325-5 Mg) 1 - 2 tab PO Q4H PRN PRN Reason: Pain Last Admin: 03/22/19 06:29 Dose: 2 tab Apixaban (Eliquis) 5 mg PO BID [facility] Last Admin: 03/22/19 12:01 Dose: 5 mg Bisacodyl (Dulcolax) 5 mg PO DAILY PRN PRN Reason: Constipation Cholecalciferol (Vitamin D3) 5,000 unit PO DAILY [facility] Last Admin: 03/22/19 08:53 Dose: 5,000 unit Docusate Sodium (Colace) 100 mg PO BID [facility] Last Admin: 03/22/19 08:53 Dose: 100 mg Famotidine (Pepcid) 20 mg PO DAILY [facility] Levothyroxine Sodium (Levothyroxine) 112 mcg PO ACBREAKFAST [facility] Last Admin: 03/22/19 06:29 Dose: 112 mcg Metoclopramide HCl (Reglan) 5 mg IVPUSH Q6H PRN PRN Reason: NAUSEA Last Admin: 03/21/19 18:26 Dose: 5 mg Miscellaneous Information (Remove Patch) 0 ea TRDERM Q72H PRN PRN Reason: SEE LABEL COMMENTS Morphine Sulfate (Morphine) 2 mg IVPUSH Q2H PRN PRN Reason: Breakthrough Pain Naloxone HCl (Narcan) 0.1 mg IVPUSH Q5M PRN PRN Reason: Oversedation Ondansetron HCl (Zofran) 4 mg IVPUSH Q6H PRN PRN Reason: Nausea/Vomiting Last Admin: 03/21/19 13:18 Dose: 4 mg Colestipol Hcl 1 Gm 0 each PO BEDTIME PRN PRN Reason: as directed Scopolamine (Transderm-Scop) 1.5 mg TRDERM Q72H PRN PRN Reason: Nausea Last Admin: 03/21/19 16:12 Dose: 1.5 mg Senna (Senna) 8.6 mg PO BID PRN PRN Reason: Constipation Simvastatin (Zocor) 20 mg PO DAILY [facility] Last Admin: 03/22/19 08:53 Dose: 20 mg Discontinued Medications Aspirin (Ecotrin) 325 mg PO BID [facility] Bupivacaine HCl (Sensorcaine-Mpf 0.25%) Confirm Administered Dose 30 ml .ROUTE .STK-MED ONE Stop: 03/21/19 07:10 Last Admin: 03/21/19 10:36 Dose: 30 ml Cefazolin Sodium (Ancef) Confirm Administered Dose 2 gm .ROUTE .STK-MED ONE Stop: 03/21/19 07:10 Last Admin: 03/21/19 10:30 Dose: 2 gm Cefazolin Sodium (Ancef) Confirm Administered Dose 2 gm .ROUTE .STK-MED ONE Stop: 03/21/19 09:48 Morphine Sulfate 8 mg/Epinephrine HCl 0.3 mg/Cefuroxime Sodium 750 mg/Ketorolac Tromethamine 30 mg/Sodium Chloride 27.9 ml 0 mg .XX ONETIME ONE Stop: 03/21/19 07:36 Last Admin: 03/21/19 15:33 Dose: Not Given Diltiazem HCl (Cardizem) 10 mg IVPUSH ONETIME ONE Stop: 03/21/19 12:16 Last Admin: 03/21/19 12:16 Dose: 10 mg Ephedrine Sulfate (Ephedrine In Ns) Confirm Administered Dose 25 mg .ROUTE .STK- MED ONE Stop: 03/21/19 09:53 Esmolol HCl (Esmolol) Confirm Administered Dose 100 mg .ROUTE .STK-MED ONE Stop: 03/21/19 10:02 Famotidine (Pepcid) 20 mg PO Q12H [facility] Last Admin: 03/22/19 06:28 Dose: 20 mg Fentanyl (Sublimaze) Confirm Administered Dose 100 mcg .ROUTE .STK-MED ONE Stop: 03/21/19 09:34 Fentanyl (Sublimaze) Confirm Administered Dose 100 mcg .ROUTE .STK-MED ONE Stop: 03/21/19 10:10 Fentanyl (Sublimaze) 50 mcg IVPUSH Q5M PRN PRN Reason: Pain Stop: 03/21/19 13:30 Last Admin: 03/21/19 11:32 Dose: 50 mcg Fentanyl (Sublimaze) Confirm Administered Dose 100 mcg .ROUTE .STK-MED ONE Stop: 03/21/19 11:20 Last Admin: 03/21/19 20:00 Dose: Not Given Glycopyrrolate () Confirm Administered Dose 1 mg .ROUTE .STK-MED ONE Stop: 03/21/19 09:56 Hydromorphone HCl (Dilaudid) 0.5 mg IVPUSH Q10M PRN PRN Reason: Pain (severe 7-10) Stop: 03/21/19 13:30 Lactated Ringer's (Ringers, Lactated) 1,000 mls @ 125 mls/hr IV ASDIRECTED [facility] Stop: 03/21/19 23:00 Last Admin: 03/21/19 07:54 Dose: 125 mls/hr Cefazolin Sodium/Dextrose 2 gm (/ Premix) 50 mls @ 100 mls/hr IV Q8H [facility] Stop: 03/22/19 07:29 Last Admin: 03/22/19 06:29 Dose: 100 mls/hr Lidocaine HCl (Xylocaine-Mpf 1%) Confirm Administered Dose 4 mls @ as directed .ROUTE .STK-MED ONE Stop: 03/21/19 08:33 Iodine (Iodine 2% Mild Tincture) Confirm Administered Dose 30 ml .ROUTE .STK- MED ONE Stop: 03/21/19 07:10 Last Admin: 03/21/19 10:28 Dose: 18 ml Ketamine HCl (Ketalar) Confirm Administered Dose 500 mg .ROUTE .STK-MED ONE Stop: 03/21/19 09:34 Lidocaine HCl (Xylocaine-Mpf 1%) Confirm Administered Dose 5 ml .ROUTE .STK-MED ONE Stop: 03/21/19 09:22 Lidocaine/Sodium Bicarbonate (Buffered Lidocaine 1% In Ns 8.4%) 0.25 ml IDERM ONETIME PRN PRN Reason: Prior to IV Start Stop: 03/21/19 18:00 Last Admin: 03/21/19 07:54 Dose: 0.25 ml Metoclopramide HCl (Reglan) 5 mg IVPUSH Q6H [facility] Last Admin: 03/21/19 20:00 Dose: Not Given Ondansetron HCl (Zofran) 4 mg IVPUSH ONETIME PRN PRN Reason: Nausea/Vomiting Stop: 03/21/19 13:30 Propofol (Diprivan 20 Ml) Confirm Administered Dose 400 mg .ROUTE .STK-MED ONE Stop: 03/21/19 08:33 Sodium Chloride (Saline Flush) 10 ml FLUSH ASDIRECTED PRN PRN Reason: Keep Vein Open Stop: 03/21/19 18:00 Tranexamic Acid (Cyklokapron) Confirm Administered Dose 1,000 mg .ROUTE .STK- MED ONE Stop: 03/21/19 07:10 Last Admin: 03/21/19 10:37 Dose: 1,000 mg Vancomycin HCl (Vancomycin) Confirm Administered Dose 1 gm .ROUTE .STK-MED ONE Stop: 03/21/19 07:10 Last Admin: 03/21/19 10:36 Dose: 1 gm - Exam Wound/Incisions: Dressing Dry and Intact General: Alert, Cooperative, No Acute Distress Lungs: Normal Respiratory Effort Extremities: Other (NVS intact for LLE. Kristofer's negative.) - Problem List Review Problem List Initiated/Reviewed/Updated: Yes - My Orders Last 24 Hours: Active Orders 24 hr Category Date Time Status EKG 12 Lead [EKG Documentation Completion] [RC] ROUTINE Care 03/22/19 08:52 Active Ready for Discharge [RC] PER UNIT ROUTINE Care 03/22/19 09:13 Active Apixaban [Eliquis] Med 03/22/19 11:15 Active 5 mg PO BID Cholecalciferol (Vitamin D3) [Vitamin D3] Med 03/22/19 09:00 Active 5,000 unit PO DAILY Docusate Sodium [Colace] Med 03/21/19 21:00 Active 100 mg PO BID Famotidine [Pepcid] Med 03/23/19 09:00 Active 20 mg PO DAILY Levothyroxine Med 03/22/19 06:00 Active 112 mcg PO ACBREAKFAST Metoclopramide [Reglan] Med 03/21/19 18:15 Active 5 mg IVPUSH Q6H PRN Remove Patch Med 03/24/19 16:00 Active 0 ea TRDERM Q72H PRN Scopolamine [Transderm-Scop] Med 03/21/19 16:00 Active 1.5 mg TRDERM Q72H PRN Simvastatin [Zocor] Med 03/22/19 09:00 Active 20 mg PO DAILY EKG 12 Lead [EK] Routine Ther 03/21/19 16:22 Ordered Medication Orders Hydrocodone Bitart/Acetaminophen ([place] 325-5 Mg) 1 - 2 tab PO Q4H PRN PRN Reason: Pain Last Admin: 03/22/19 06:29 Dose: 2 tab Admin: 03/21/19 22:29 Dose: 2 tab Admin: 03/21/19 18:26 Dose: 2 tab Apixaban (Eliquis) 5 mg PO BID [facility] Last Admin: 03/22/19 12:01 Dose: 5 mg Bisacodyl (Dulcolax) 5 mg PO DAILY PRN PRN Reason: Constipation Cholecalciferol (Vitamin D3) 5,000 unit PO DAILY [facility] Last Admin: 03/22/19 08:53 Dose: 5,000 unit Docusate Sodium (Colace) 100 mg PO BID [facility] Last Admin: 03/22/19 08:53 Dose: 100 mg Admin: 03/21/19 22:29 Dose: 100 mg Famotidine (Pepcid) 20 mg PO DAILY [facility] Levothyroxine Sodium (Levothyroxine) 112 mcg PO ACBREAKFAST [facility] Last Admin: 03/22/19 06:29 Dose: 112 mcg Metoclopramide HCl (Reglan) 5 mg IVPUSH Q6H PRN PRN Reason: NAUSEA Last Admin: 03/21/19 18:26 Dose: 5 mg Miscellaneous Information (Remove Patch) 0 ea TRDERM Q72H PRN PRN Reason: SEE LABEL COMMENTS Morphine Sulfate (Morphine) 2 mg IVPUSH Q2H PRN PRN Reason: Breakthrough Pain Naloxone HCl (Narcan) 0.1 mg IVPUSH Q5M PRN PRN Reason: Oversedation Ondansetron HCl (Zofran) 4 mg IVPUSH Q6H PRN PRN Reason: Nausea/Vomiting Last Admin: 03/21/19 13:18 Dose: 4 mg Colestipol Hcl 1 Gm 0 each PO BEDTIME PRN PRN Reason: as directed Scopolamine (Transderm-Scop) 1.5 mg TRDERM Q72H PRN PRN Reason: Nausea Last Admin: 03/21/19 16:12 Dose: 1.5 mg Senna (Senna) 8.6 mg PO BID PRN PRN Reason: Constipation Simvastatin (Zocor) 20 mg PO DAILY [facility] Last Admin: 03/22/19 08:53 Dose: 20 mg - Assessment Assessment (Free Text/Narrative):: POD#1 - left BABAK - Plan Plan (Free Text/Narrative):: 1. Hgb 11.1. 2. BABAK precautions, WBAT LLE. 3. Eliquis 5mg BID for VTE prophylaxis chosen due to new onset dx atrial fibrillation. 4. Discharge to home today if cleared by Hospitalist service and therapies. The pt's case was discussed with Dr. Greene. Dr. Greene also visited with the pt today.
--- NOTE | 2019-03-22 14:36 | PCM.DCSUM1 ---
Discharge Summary - Hospital Course Brief History: Xochitl is an 88 yo female who underwent left BABAK with Dr. Greene on 03-21-2019. The procedure was completed under general anesthesia. The pt was admitted to the Medical-Surgical Unit. Medical management was provided by the Hospitalist service. The pt's Hospital course was remarkable for new onset atrial fibrillation which was closely monitored and treated by the Hospitalist service and the pt's rate was cotrolled. The pt's Hgb on POD#1 was 11.1. On POD#1, Eliquis 5mg PO BID was chosen for VTE prophylaxis due to new onset atrial fibrillation. SCDs and TEDs were also ordered. A Mepilex dressing was placed at the incision site at the time of surgery and remained clean and dry. The pt participated in P.T. and O.T. and progressed well. She followed the BABAK precautions. The pt was allowed to WBAT. On POD#1, the pt was deemed appropriate to discharge to home with her family. - Discharge Data Discharge Date: 03/22/19 Discharge Disposition: Home, Self-Care 01 Condition: Good - Referral to Home Health Primary Care Physician: Mat Sethi MD - Patient Summary/Data Consults: Consultations 03/21/19 07:05 OT Evaluation and Treatment [CONS] Routine PT Evaluation and Treatment [CONS] Routine 03/21/19 07:09 Consult to Physician [CONS] Routine - Patient Instructions Diet: Usual Diet as Tolerated Activity: Apply Ice, As Tolerated, Elevate Extremity, Full Weight Bearing Activity, Other: Follow the total hip precautions. Driving: Do Not Drive Showering/Bathing: May Shower Wound/Incision Care: Keep Operative Site/Wound Site Clean and Dry, Do NOT Change Dressing Notify Provider of: Fever, Increased Pain, Swelling and Redness, Drainage, Nausea and/or Vomiting Other/Special Instructions: Please get up and moving around EVERY HOUR while awake. This helps to prevent blood clots. Please use your walker and have help with mobility as needed. Take a short walk in your home every hour while awake. Please take the blood thinner medication as directed. At home, please complete the exercises that you learned during the Hospital stay. Schedule for physical therapy. Use the pain medication as needed. The medication may cause drowsiness and constipation. Contact your primary care provider for instructions if you are constipated. You may use a stool softener like docusate sodium or Colace 100mg twice daily and/or a laxative like Miralax daily for constipation. Increase your water and fiber intake while you are using the pain medication. Discontinue use of the pain medication as soon as able. Please do not use other medications that may cause drowsiness (other pain medications, anxiety pills, cold medications, sleeping pills, etc) while using the prescription pain medication. Do not use alcohol while using the pain medication. You may use acetaminophen or Tylenol for pain management, however, please ensure you are not using over 4000 mg or 4 grams of acetaminophen per day from all sources. Your pain medication has 325mg of acetaminophen per tablet. At this time, please do not use ibuprofen (Motrin, Advil) or naproxen (Aleve) for pain management as you are using the blood thinner medication. Wear the KARINA hose during the day and you may remove these at night. Elevate the limb to decrease swelling. Place ice to the area often. Place a towel between your skin and the blue pad. Use the incentive spirometer often. Take deep breaths throughout the day. Please keep the dressing in place until follow-up. Notify the Clinic if the dressing becomes saturated. Increase your protein intake while you are healing. If you have diabetes, please closely monitor your blood sugars and notify your primary care provider with abnormal values. Elevated blood sugars increases the risk of infection. Call the Clinic with questions or concerns - [phone]. Follow-up with primary care provider within 5-7 days of discharge regarding new-onset proximal A-fib. - Discharge Plan *PRESCRIPTION DRUG MONITORING PROGRAM REVIEWED*: No *COPY OF PRESCRIPTION DRUG MONITORING REPORT IN PATIENT [place]: No Prescriptions/Med Rec: Acetaminophen/HYDROcodone [Ballard 325-5 MG] 1 - 2 tab PO Q4H PRN #60 tablet PRN Reason: Pain Apixaban [Eliquis] 5 mg PO BID #70 tablet Home Medications: Home Meds Acetaminophen [Tylenol] 650 mg PO Q4H PRN 03/20/19 [History] Cholecalciferol (Vitamin D3) [Vitamin D3] 5,000 unit PO DAILY 03/20/19 [History] Colestipol HCl 1 gm PO BEDTIME PRN 03/20/19 [History] Levothyroxine 112 mcg PO DAILY 03/20/19 [History] Simvastatin 20 mg PO DAILY 03/20/19 [History] Acetaminophen/HYDROcodone [Ballard 325-5 MG] 1 - 2 tab PO Q4H PRN #60 tablet 03/22 [Rx] Apixaban [Eliquis] 5 mg PO BID #70 tablet 03/22/19 [Rx] Bisacodyl [Dulcolax] 5 mg PO DAILY PRN tablet 03/22/19 [Rx] Docusate Sodium [Colace] 100 mg PO BID cap 03/22/19 [Rx] Famotidine [Pepcid] 20 mg PO Q12H tablet 03/22/19 [Rx] Sennosides [Senna] 8.6 mg PO BID PRN tablet 03/22/19 [Rx] Patient Handouts: Total Hip Replacement, [id number], Apixaban oral tablets Referrals: Lucero Murillo PA-C [Physician Sc[facility] Derrick Operator] - - Discharge Summary/Plan Comment DC Time >30 min.: No - Patient Data Vitals - Most Recent: Last Vital Signs Temp 97.9 F 03/22/19 07:34 Pulse 65 03/22/19 07:34 Resp 20 03/22/19 07:34 BP 133/68 03/22/19 07:34 Pulse Ox 93 L 03/22/19 07:34 Weight - Most Recent: 147 lb 4.8 oz I&O - Last 24 hours: Intake & Output 03/21/19 03/22/19 03/22/19 22:59 06:59 14:59 Intake Total 180 300 90 Output Total 500 Balance 180 -200 90 Lab Results - Last 24 hrs: Laboratory Results - last 24 hr 03/22/19 03/22/19 Range/Units 05:15 05:15 WBC 5.98 (3.98-10.04) K/mm3 RBC 4.17 (3.98-5.22) M/mm3 Hgb 11.1 L (11.2-15.7) gm/dl Hct 37.2 (34.1-44.9) % MCV 89.2 (79.4-94.8) fl MCH 26.6 (25.6-32.2) pg MCHC 29.8 L (32.2-35.5) g/dl RDW Std Deviation 57.5 H (36.4-46.3) fL Plt Count 192 (182-369) K/mm3 MPV 10.3 (9.4-12.3) fl Sodium 141 (136-145) mEq/L Potassium 3.9 (3.5-5.1) mEq/L Chloride 104 (98-107) mEq/L Carbon Dioxide 30 (21-32) mEq/L Anion Gap 10.9 (5-15) BUN 12 (7-18) mg/dL Creatinine 0.9 (0.55-1.02) mg/dL Est Cr Clr Drug Dosing 34.83 mL/min Estimated GFR (MDRD) 59 (>60) mL/min BUN/Creatinine Ratio 13.3 L (14-18) Glucose 101 (83-115) mg/dL Calcium 9.3 (8.5-10.1) mg/dL Total Bilirubin 0.6 (0.2-1.0) mg/dL AST 19 (15-37) U/L ALT 15 (14-59) U/L Alkaline Phosphatase 51 (46-116) U/L Total Protein 6.2 L (6.4-8.2) g/dl Albumin 3.3 L (3.4-5.0) g/dl Globulin 2.9 gm/dL Albumin/Globulin Ratio 1.1 (1-2) Med Orders - Current: Current Medications Hydrocodone Bitart/Acetaminophen (Ballard 325-5 Mg) 1 - 2 tab PO Q4H PRN PRN Reason: Pain Last Admin: 03/22/19 14:21 Dose: 2 tab Apixaban (Eliquis) 5 mg PO BID [facility] Last Admin: 03/22/19 12:01 Dose: 5 mg Bisacodyl (Dulcolax) 5 mg PO DAILY PRN PRN Reason: Constipation Cholecalciferol (Vitamin D3) 5,000 unit PO DAILY [facility] Last Admin: 03/22/19 08:53 Dose: 5,000 unit Docusate Sodium (Colace) 100 mg PO BID [facility] Last Admin: 03/22/19 08:53 Dose: 100 mg Famotidine (Pepcid) 20 mg PO DAILY [facility] Levothyroxine Sodium (Levothyroxine) 112 mcg PO ACBREAKFAST [facility] Last Admin: 03/22/19 06:29 Dose: 112 mcg Metoclopramide HCl (Reglan) 5 mg IVPUSH Q6H PRN PRN Reason: NAUSEA Last Admin: 03/21/19 18:26 Dose: 5 mg Miscellaneous Information (Remove Patch) 0 ea TRDERM Q72H PRN PRN Reason: SEE LABEL COMMENTS Morphine Sulfate (Morphine) 2 mg IVPUSH Q2H PRN PRN Reason: Breakthrough Pain Naloxone HCl (Narcan) 0.1 mg IVPUSH Q5M PRN PRN Reason: Oversedation Ondansetron HCl (Zofran) 4 mg IVPUSH Q6H PRN PRN Reason: Nausea/Vomiting Last Admin: 03/21/19 13:18 Dose: 4 mg Colestipol Hcl 1 Gm 0 each PO BEDTIME PRN PRN Reason: as directed Scopolamine (Transderm-Scop) 1.5 mg TRDERM Q72H PRN PRN Reason: Nausea Last Admin: 03/21/19 16:12 Dose: 1.5 mg Senna (Senna) 8.6 mg PO BID PRN PRN Reason: Constipation Simvastatin (Zocor) 20 mg PO DAILY [facility] Last Admin: 03/22/19 08:53 Dose: 20 mg Discontinued Medications Aspirin (Ecotrin) 325 mg PO BID [facility] Bupivacaine HCl (Sensorcaine-Mpf 0.25%) Confirm Administered Dose 30 ml .ROUTE .STK-MED ONE Stop: 03/21/19 07:10 Last Admin: 03/21/19 10:36 Dose: 30 ml Cefazolin Sodium (Ancef) Confirm Administered Dose 2 gm .ROUTE .STK-MED ONE Stop: 03/21/19 07:10 Last Admin: 03/21/19 10:30 Dose: 2 gm Cefazolin Sodium (Ancef) Confirm Administered Dose 2 gm .ROUTE .STK-MED ONE Stop: 03/21/19 09:48 Morphine Sulfate 8 mg/Epinephrine HCl 0.3 mg/Cefuroxime Sodium 750 mg/Ketorolac Tromethamine 30 mg/Sodium Chloride 27.9 ml 0 mg .XX ONETIME ONE Stop: 03/21/19 07:36 Last Admin: 03/21/19 15:33 Dose: Not Given Diltiazem HCl (Cardizem) 10 mg IVPUSH ONETIME ONE Stop: 03/21/19 12:16 Last Admin: 03/21/19 12:16 Dose: 10 mg Ephedrine Sulfate (Ephedrine In Ns) Confirm Administered Dose 25 mg .ROUTE .STK- MED ONE Stop: 03/21/19 09:53 Esmolol HCl (Esmolol) Confirm Administered Dose 100 mg .ROUTE .STK-MED ONE Stop: 03/21/19 10:02 Famotidine (Pepcid) 20 mg PO Q12H [facility] Last Admin: 03/22/19 06:28 Dose: 20 mg Fentanyl (Sublimaze) Confirm Administered Dose 100 mcg .ROUTE .STK-MED ONE Stop: 03/21/19 09:34 Fentanyl (Sublimaze) Confirm Administered Dose 100 mcg .ROUTE .STK-MED ONE Stop: 03/21/19 10:10 Fentanyl (Sublimaze) 50 mcg IVPUSH Q5M PRN PRN Reason: Pain Stop: 03/21/19 13:30 Last Admin: 03/21/19 11:32 Dose: 50 mcg Fentanyl (Sublimaze) Confirm Administered Dose 100 mcg .ROUTE .STK-MED ONE Stop: 03/21/19 11:20 Last Admin: 03/21/19 20:00 Dose: Not Given Glycopyrrolate () Confirm Administered Dose 1 mg .ROUTE .STK-MED ONE Stop: 03/21/19 09:56 Hydromorphone HCl (Dilaudid) 0.5 mg IVPUSH Q10M PRN PRN Reason: Pain (severe 7-10) Stop: 03/21/19 13:30 Lactated Ringer's (Ringers, Lactated) 1,000 mls @ 125 mls/hr IV ASDIRECTED [facility] Stop: 03/21/19 23:00 Last Admin: 03/21/19 07:54 Dose: 125 mls/hr Cefazolin Sodium/Dextrose 2 gm (/ Premix) 50 mls @ 100 mls/hr IV Q8H [facility] Stop: 03/22/19 07:29 Last Admin: 03/22/19 06:29 Dose: 100 mls/hr Lidocaine HCl (Xylocaine-Mpf 1%) Confirm Administered Dose 4 mls @ as directed .ROUTE .STK-MED ONE Stop: 03/21/19 08:33 Iodine (Iodine 2% Mild Tincture) Confirm Administered Dose 30 ml .ROUTE .STK- MED ONE Stop: 03/21/19 07:10 Last Admin: 03/21/19 10:28 Dose: 18 ml Ketamine HCl (Ketalar) Confirm Administered Dose 500 mg .ROUTE .STK-MED ONE Stop: 03/21/19 09:34 Lidocaine HCl (Xylocaine-Mpf 1%) Confirm Administered Dose 5 ml .ROUTE .STK-MED ONE Stop: 03/21/19 09:22 Lidocaine/Sodium Bicarbonate (Buffered Lidocaine 1% In Ns 8.4%) 0.25 ml IDERM ONETIME PRN PRN Reason: Prior to IV Start Stop: 03/21/19 18:00 Last Admin: 03/21/19 07:54 Dose: 0.25 ml Metoclopramide HCl (Reglan) 5 mg IVPUSH Q6H [facility] Last Admin: 03/21/19 20:00 Dose: Not Given Ondansetron HCl (Zofran) 4 mg IVPUSH ONETIME PRN PRN Reason: Nausea/Vomiting Stop: 03/21/19 13:30 Propofol (Diprivan 20 Ml) Confirm Administered Dose 400 mg .ROUTE .STK-MED ONE Stop: 03/21/19 08:33 Sodium Chloride (Saline Flush) 10 ml FLUSH ASDIRECTED PRN PRN Reason: Keep Vein Open Stop: 03/21/19 18:00 Tranexamic Acid (Cyklokapron) Confirm Administered Dose 1,000 mg .ROUTE .STK- MED ONE Stop: 03/21/19 07:10 Last Admin: 03/21/19 10:37 Dose: 1,000 mg Vancomycin HCl (Vancomycin) Confirm Administered Dose 1 gm .ROUTE .STK-MED ONE Stop: 03/21/19 07:10 Last Admin: 03/21/19 10:36 Dose: 1 gm
[2019-03-23] MEDS ORDERED: Famotidine 20 MG Tab PO SCH (09:00)
--- NOTE | 2019-03-26 21:38 | PCM.OPNOTE ---
- General Post-Op/Procedure Note Date of Surgery/Procedure: 03/21/19 Operative Procedure(s): left total hip arthroplasty Pre Op Diagnosis: left hip osteoarthrosis Post-Op Diagnosis: Same Anesthesia Technique: Local, MAC, Spinal Primary Surgeon: Delgado Greene Anesthesia Provider: Ismael Ruiz Senior Payroll Administrator: Lucero Murillo Senior Payroll Administrator: Caryn Banerjee EBHaley in mLs: 350 Complications: None Condition: Good Free Text/Narrative:: 52 cup 6 stem 28+4
--- NOTE | 2019-03-26 22:22 | OR ---
DATE OF OPERATION: 03/21/2019 SURGEON: Delgado Greene MD OPERATION PERFORMED: Left total hip arthroplasty. PREOPERATIVE DIAGNOSIS: Left hip osteoarthrosis. POSTOPERATIVE DIAGNOSIS: Left hip osteoarthrosis. ANESTHESIA: Local MAC with spinal. ANESTHESIA PROVIDER: Ismael Ruiz CRNA. ASSISTANTS: Lucero Murillo PA-C, and Caryn Banerjee LPN. ESTIMATED BLOOD: 350 mL. COMPLICATIONS: None. CONDITION: Stable. IMPLANT: 1. Fletcher size 52 mm solid Tritanium II acetabular cup. 2. MDM shell. 3. Oscar size 6 Accolade II stem. 4. Fletcher size 28+ 4 mm MDM components. DESCRIPTION OF PROCEDURE: The patient was identified in the preoperative holding area. Proper site was marked and identified by the surgeon. The patient was taken back to the operating theater. After adequate anesthesia, the patient was placed in a right lateral decubitus position. Axillary roll was placed. All bony prominences were well padded. Pegs were then placed and well padded. The patient's gluteal fold was parallel to the floor. The left hip was then sterilely prepped and draped in the usual sterile fashion. OR time-out was performed. The patient received 2 g IV Ancef. At this time, a standard posterior incision was made centered over the greater trochanter. This was taken down to the IT band and gluteal fascia, which was incised along the incisional length. A Charnley retractor was then placed. Short external rotators were identified. Takedown of the short external rotators was done from the level of the piriformis down to the lesser trochanter as well as a capsulotomy. The femoral head was then dislocated. Neck cut was then completed. Attention was turned to the acetabulum. Anterior and posterior acetabular retractors were placed. Circumferential removal of labrum was done at this time as well as the pulvinar. Starting with 48 reamer, I was able to ream up to a 52, which was found to have good purchase with adequate bony contact. At this time, a 52 mm Tritanium II acetabular cup was then impacted in place in roughly 40 to 50 degrees of abduction and 20 to 30 degrees of anteversion. The MDM liner was then impacted into place. Then attention was turned to the femur. Box chisel was used out laterally. Starter awl was placed down the canal. Starting with the 0 broach, I was able to broach up to a size 6 which was found to be rotationally and vertically stable. I then trialed it with 127 degree neck +0, and it was found to be a little bit short. So at this time, I did a +4 and had adequate restorationist of leg lengths and stable throughout range of motion. At this time, the MDM components were constructed on the back table. The size 6 Accolade II stem was impacted into place, and the MDM components with a 28+ 4 head were impacted into place. The hip was then relocated. At this time, a #5 Ethibond suture was used for closure of the short external rotators and capsule. 1 L dilute Betadine solution was irrigated through the hip along with 3 L pulse lavage irrigation with Ancef. Topical tranexamic acid and vancomycin powder were placed. A #2 barbed suture was used for closure of the IT band and gluteal fascia, 2-0 Vicryl was used subcutaneously, and Prineo was used for the skin. The patient tolerated the procedure well and was sent to PACU in stable condition. ESTIMATED BLOOD LOSS: MMODAL /[id number]
== END 2019-03-22 14:30 | disposition home or self-care (01) | DRG 470 ==
LOC: JD.MS 07:01
PROVIDERS: ADMIT Orthopaedic Surgery; ATTEND Orthopaedic Surgery
PROC: 0SRB01Z Replacement of Left Hip Joint with Metal Synthetic Substitute, Open Approach (ICD-10-PCS; principal; 2019-03-21)
DX: M16.12 Unilateral primary osteoarthritis, left hip (principal); I97.191 Other postprocedural cardiac functional disturbances following other surgery; I10 Essential (primary) hypertension; M85.80 Other specified disorders of bone density and structure, unspecified site; E03.9 Hypothyroidism, unspecified; E78.5 Hyperlipidemia, unspecified; R91.1 Solitary pulmonary nodule; E66.9 Obesity, unspecified; K62.3 Rectal prolapse; N81.4 Uterovaginal prolapse, unspecified; F41.9 Anxiety disorder, unspecified; M48.061 Spinal stenosis, lumbar region without neurogenic claudication; G89.29 Other chronic pain; M54.9 Dorsalgia, unspecified
CPT/HCPCS: 01214; 36415; 73501-26-LT; 73501-LT; 80053; 85027; 86850; 86900; 86901; 87641; 93005; 94760; 97110-GP; 97116-GP; 97161-GP; 97165-GO; 97535-GO; A9270-GY; C1776; J0171; J0690; J0697; J1885; J2001; J2270; J2405; J2704; J2765; J3010; J3370; J3490; J7050; J7120